=== PATIENT | female | born 1995 | race Caucasian/White ===

== ENCOUNTER 2016-11-12 13:53 | Outpatient (CLI) | payer BC | END 2016-11-12 19:25 | disposition home or self-care (01) | LOC: SUS 13:53 | PROVIDERS: ATTEND Specialist | DX: M79.662 Pain in left lower leg (principal) | CPT/HCPCS: 93971 ==

== ENCOUNTER 2016-12-10 15:20 | Day surgery (SDC) | payer BC ==
[~2016-12-10] VITALS: Ht 170.2 cm; Wt 80.3 kg
[2016-12-10 16:13] LABS: BASOPHILS # (AUTO) 0.1 K/uL (0.0-0.2); BASOPHILS % (AUTO) 0.7 % (0.0-2.0); EOSINOPHILS # (AUTO) 0.1 K/uL (0.0-0.4); EOSINOPHILS % (AUTO) 1.2 % (0.0-4.0); HEMATOCRIT 26.9 % (36-48); HEMOGLOBIN 8.1 g/dL (12.0-16.0); LYMPHOCYTES # (AUTO) 2.1 K/uL (1.0-5.5); LYMPHOCYTES % (AUTO) 20.1 % (20.5-51.5); MEAN CORPUSCULAR HEMOGLOBIN 19 pg (27-31); MEAN CORPUSCULAR HGB CONC 30 % (32-36); MEAN CORPUSCULAR VOLUME 64 fL (79.0-98.0); MONOCYTES # (AUTO) 0.9 K/uL (0.0-1.0); MONOCYTES % (AUTO) 8.6 % (1.7-9.3); NEUTROPHILS % (AUTO) 69.4 % (40.0-70.0); PLATELET COUNT (AUTO) 228 K/uL (130-430); RED BLOOD CELL COUNT(AUTO) 4.24 MIL/uL (4.2-6.2); RED CELL DISTRIBUTION WIDTH 16.2 % (9.0-15.0); WHITE BLOOD COUNT (AUTO) 10.2 K/uL (4.8-10.8)
[2016-12-10 16:48] LABS: BILIRUBIN,URINE NEGATIVE (NEGATIVE); BLOOD, URINE NEGATIVE (NEGATIVE); CLARITY/URINE CLEAR (CLEAR); COLOR,URINE YELLOW (YELLOW); GLUCOSE,URINE NEGATIVE (NEGATIVE); KETONES,URINE TRACE (NEGATIVE); LEUKOCYTE ESTERASE ,URINE NEGATIVE (NEGATIVE); NITRITE, URINE NEGATIVE (NEGATIVE); PH,URINE 6.5 (5.0-8.0); PROTEIN URINE NEGATIVE (NEGATIVE); UROBILINOGEN,URINE 0.2 (0.2-1.0)
[2016-12-10] MEDS ORDERED: MIDAZOLAM HCL 5 MG/5 ML VIAL IVP ONE (17:30)
[2016-12-10] MEDS ORDERED: ONDANSETRON HCL 4 MG/2 ML VIAL IVP ONE (17:30)
[2016-12-10] MEDS ORDERED: ePHEDrine sulfate 50 MG/ML VIAL IV ONE (17:30)
[2016-12-10] MEDS ORDERED: BUPIVACAINE /PF 0.25% 30 ML VIAL INJ ONE (17:30)
[2016-12-10] MEDS ORDERED: NS IRRIG SOLN 1000 ML IR ONE (17:30)
[2016-12-10] MEDS ORDERED: LR 1,000 ML IV SCH (18:39)
[2016-12-10] MEDS ORDERED: HYDROmorphone 1 MG INJ. 1 MG/ML AMPUL IVP PRN (18:45)
[2016-12-10] MEDS ORDERED: HYDROmorphone 2 MG/ML VIAL IVP PRN ×2 (18:45)
[2016-12-10] MEDS ORDERED: MEPERIDINE HCL/PF 25 MG/ML DISP.SYRIN IVP PRN (18:45)
[2016-12-10] MEDS ORDERED: TERBUTALINE SULFATE 1 MG/ML VIAL SUBCUT ONE (19:15)
[2016-12-10] MEDS ORDERED: MORPHINE SULFATE 10 MG/ML VIAL IM PRN (19:15)
[2016-12-10 22:32] VITALS: BP_SYST 111
[2016-12-11] MEDS: ceFAZolin SODIUM 1 GM in D5W 50 ML IV SCH ×2 (02:03→10:31)
[2016-12-11] MEDS ORDERED: ceFAZolin SODIUM 1 GM VIAL ONE (10:28)
== END 2016-12-11 18:50 | disposition home or self-care (01) ==
LOC: SDS 15:20 → SPU 15:25 → SDS 12-11 18:50
PROVIDERS: ATTEND Specialist
DX: O34.32 Maternal care for cervical incompetence, second trimester (principal); O30.002 Twin pregnancy, unspecified number of placenta and unspecified number of amniotic sacs, second trimester; Z3A.22 22 weeks gestation of pregnancy; D64.9 Anemia, unspecified; G43.909 Migraine, unspecified, not intractable, without status migrainosus; E66.9 Obesity, unspecified
CPT/HCPCS: 36415; 59320; 81003; 85025; 87070 ×2; 87086; 94010; 94760 ×2; J0690 ×2; J2250; J2270; J2405; J3490; J7060; J7120

== ENCOUNTER 2017-01-15 22:04 | Observation (INO) | payer BC ==
[~2017-01-15] VITALS: Ht 170.2 cm; Wt 82.6 kg
[2017-01-15] MEDS ORDERED: TERBUTALINE SULFATE 1 MG/ML VIAL ONE (22:26)
[2017-01-15] MEDS ORDERED: TERBUTALINE SULFATE 1 MG/ML VIAL SUBCUT PRN (22:30)
[2017-01-15 23:06] LABS: BILIRUBIN,URINE NEGATIVE (NEGATIVE); BLOOD, URINE NEGATIVE (NEGATIVE); CLARITY/URINE CLEAR (CLEAR); COLOR,URINE YELLOW (YELLOW); GLUCOSE,URINE TRACE (NEGATIVE); KETONES,URINE NEGATIVE (NEGATIVE); LEUKOCYTE ESTERASE ,URINE NEGATIVE (NEGATIVE); NITRITE, URINE NEGATIVE (NEGATIVE); PROTEIN URINE NEGATIVE (NEGATIVE); UROBILINOGEN,URINE 0.2 (0.2-1.0)
== END 2017-01-16 00:40 | disposition home or self-care (01) ==
LOC: SPU 22:04
PROVIDERS: ADMIT Specialist; ATTEND Specialist
DX: O62.9 Abnormality of forces of labor, unspecified (principal); Z3A.27 27 weeks gestation of pregnancy
CPT/HCPCS: 81003; G0378 ×2; J3105

== ENCOUNTER 2017-01-24 13:35 | Observation (INO) | payer BC ==
[~2017-01-24] VITALS: Ht 170.2 cm; Wt 84.4 kg
[2017-01-24 14:14] LABS: BILIRUBIN,URINE NEGATIVE (NEGATIVE); BLOOD, URINE NEGATIVE (NEGATIVE); CLARITY/URINE CLEAR (CLEAR); COLOR,URINE YELLOW (YELLOW); GLUCOSE,URINE NEGATIVE (NEGATIVE); KETONES,URINE NEGATIVE (NEGATIVE); NITRITE, URINE NEGATIVE (NEGATIVE); PH,URINE 5.5 (5.0-8.0); PROTEIN URINE NEGATIVE (NEGATIVE); UROBILINOGEN,URINE 0.2 (0.2-1.0)
[2017-01-24 14:18] LABS: LEUKOCYTE ESTERASE ,URINE TRACE (NEGATIVE)
[2017-01-24 14:19] LABS: BACTERIA,URINE FEW /HPF (None Seen); MUCUS,URINE None Seen /LPF (None Seen); RBC,URINE NONE SEEN /HPF (0-3)
[2017-01-24] MEDS ORDERED: TERBUTALINE SULFATE 1 MG/ML VIAL ONE (14:20)
[2017-01-24] MEDS ORDERED: TERBUTALINE SULFATE 1 MG/ML VIAL SUBCUT ONE (14:30)
== END 2017-01-24 15:55 | disposition home or self-care (01) ==
LOC: SPU 13:35
PROVIDERS: ADMIT Specialist; ATTEND Specialist
DX: O62.9 Abnormality of forces of labor, unspecified (principal); Z3A.29 29 weeks gestation of pregnancy
CPT/HCPCS: 81000; 96372; G0378; J3105

== ENCOUNTER 2020-05-03 10:53 | Emergency (ER) | payer BC, MEDICAID ==
[~2020-05-03] VITALS: Ht 170.2 cm; Wt 88.5 kg
[2020-05-03 11:09] VITALS: BP_SYST 109
[2020-05-03] MEDS ORDERED: NACL 0.9% 1,000 ML IV ONE (11:30)
[2020-05-03] MEDS ORDERED: MORPHINE 4 MG/ML INJ. SYRINGE IVP ONE (11:30)
[2020-05-03] MEDS ORDERED: ONDANSETRON HCL 4 MG/2 ML VIAL IVP ONE ×2 (11:30→14:45)
[2020-05-03 11:52] LABS: BASOPHILS # (AUTO) 0.1 K/uL (0.0-0.2); BASOPHILS % (AUTO) 0.8 % (0.0-2.0); EOSINOPHILS % (AUTO) 0.2 % (0.0-4.0); HEMATOCRIT 35.2 % (36-48); HEMOGLOBIN 10.8 g/dL (12.0-16.0); MEAN CORPUSCULAR HEMOGLOBIN 20 pg (27-31); MEAN CORPUSCULAR HGB CONC 31 % (32-36); MEAN CORPUSCULAR VOLUME 65 fL (79.0-98.0); MONOCYTES # (AUTO) 0.5 K/uL (0.0-1.0); MONOCYTES % (AUTO) 6.6 % (1.7-9.3); NEUTROPHILS # (AUTO) 5.9 K/uL (1.8-7.7); NEUTROPHILS % (AUTO) 79.4 % (40.0-70.0); PLATELET COUNT (AUTO) 268 K/uL (130-430); RED BLOOD CELL COUNT(AUTO) 5.44 MIL/uL (4.2-6.2); RED CELL DISTRIBUTION WIDTH 18.5 % (9.0-15.0); WHITE BLOOD COUNT (AUTO) 7.5 K/uL (4.8-10.8)
[2020-05-03 12:06] LABS: CALCIUM 9.5 mg/dL (8.4-11.0); CREATININE 0.84 mg/dL (0.55-1.30); POTASSIUM 3.8 mmol/L (3.5-5.1)
[2020-05-03 12:10] LABS: PROTHROMBIN TIME 10.6 SECS (9.5-12.5)
[2020-05-03 12:12] LABS: TOTAL BILIRUBIN 0.3 mg/dL (0.0-1.0)
[2020-05-03 12:30] LABS: BILIRUBIN,URINE NEGATIVE (NEGATIVE); BLOOD, URINE NEGATIVE (NEGATIVE); COLOR,URINE YELLOW (YELLOW); GLUCOSE,URINE NEGATIVE (NEGATIVE); KETONES,URINE NEGATIVE (NEGATIVE); LEUKOCYTE ESTERASE ,URINE NEGATIVE (NEGATIVE); NITRITE, URINE NEGATIVE (NEGATIVE); PROTEIN URINE TRACE (NEGATIVE); UROBILINOGEN,URINE 0.2 (0.2-1.0)
[2020-05-03 12:36] LABS: CLARITY/URINE SLIGHTLY HAZY (CLEAR)
[2020-05-03] MEDS ORDERED: KETOROLAC TROMETHAMINE 30 MG VIAL IVP ONE (14:45)
[2020-05-03] MEDS ORDERED: IBUP-1969 PO (14:49)
[2020-05-03] MEDS ORDERED: ONDA-8 TL (14:49)
[2020-05-03] MEDS ORDERED: TRAM50TA2 PO (14:49)
[2020-05-03 15:12] VITALS: BP_SYST 109
== END 2020-05-03 15:12 | disposition home or self-care (01) ==
LOC: SED 10:53
DX: N83.209 Unspecified ovarian cyst, unspecified side (principal)
CPT/HCPCS: 36415; 74176; 76376; 80053; 81003; 81025; 83690; 84703; 85025; 85610; 85730; 96361; 96374; 96375; 96376; 99285; J1885; J2270; J2405; J7030

== ENCOUNTER 2021-05-06 08:25 | Emergency (ER) | payer MEDICAID ==
[~2021-05-06] VITALS: Ht 170.2 cm; Wt 84.8 kg
[~2021-05-06 08:25] MED LIST: IBUP-1969 PO; ONDA-8 TL; TRAM50TA2 PO
--- NOTE | 2021-05-06 08:31 | NUR ---
Patient to ER bed 04 to gown for evaluation. Side rails up.
[2021-05-06 08:32] VITALS: BP_SYST 146
--- NOTE | 2021-05-06 08:35 | NUR ---
PATIENT IN NO ACUTE DISTRESS, C/C RLQ PAIN. DENIES N/V/D. AOX4.
--- NOTE | 2021-05-06 08:45 | NUR ---
UA COLLECTED, BROUGHT TO LAB.
--- NOTE | 2021-05-06 08:48 | NUR ---
MD AT BEDSIDE ASSESSING PATIENT.
[2021-05-06] MEDS ORDERED: KETOROLAC TROMETHAMINE 60 MG/2 ML VIAL IM ONE (09:00)
--- NOTE | 2021-05-06 09:05 | NUR ---
Pt to x-ray, accompanied by tech.
--- NOTE | 2021-05-06 09:14 | NUR ---
Pt back from x-ray, accompanied by tech.
[2021-05-06 09:18] LABS: BASOPHILS # (AUTO) 0.1 K/uL (0.0-0.2); BASOPHILS % (AUTO) 1.1 % (0.0-2.0); EOSINOPHILS # (AUTO) 0.2 K/uL (0.0-0.4); EOSINOPHILS % (AUTO) 2.5 % (0.0-4.0); HEMATOCRIT 35.5 % (36-48); HEMOGLOBIN 10.9 g/dL (12.0-16.0); LYMPHOCYTES # (AUTO) 1.6 K/uL (1.0-5.5); LYMPHOCYTES % (AUTO) 24.3 % (20.5-51.5); MEAN CORPUSCULAR HEMOGLOBIN 21 pg (27-31); MEAN CORPUSCULAR HGB CONC 31 % (32-36); MEAN CORPUSCULAR VOLUME 68 fL (79.0-98.0); MONOCYTES # (AUTO) 0.6 K/uL (0.0-1.0); MONOCYTES % (AUTO) 9.5 % (1.7-9.3); NEUTROPHILS % (AUTO) 62.6 % (40.0-70.0); PLATELET COUNT (AUTO) 251 K/uL (130-430); RED BLOOD CELL COUNT(AUTO) 5.23 MIL/uL (4.2-6.2); RED CELL DISTRIBUTION WIDTH 15.4 % (9.0-15.0); WHITE BLOOD COUNT (AUTO) 6.4 K/uL (4.8-10.8)
[2021-05-06 09:26] LABS: BILIRUBIN,URINE NEGATIVE (NEGATIVE); BLOOD, URINE NEGATIVE (NEGATIVE); CLARITY/URINE SL CLOUDY (CLEAR); COLOR,URINE YELLOW (YELLOW); GLUCOSE,URINE NEGATIVE (NEGATIVE); KETONES,URINE NEGATIVE (NEGATIVE); LEUKOCYTE ESTERASE ,URINE 3+ (NEGATIVE); NITRITE, URINE NEGATIVE (NEGATIVE); PROTEIN URINE NEGATIVE (NEGATIVE); UROBILINOGEN,URINE 0.2 (0.2-1.0)
[2021-05-06 09:27] LABS: CALCIUM 9.4 mg/dL (8.4-11.0); CREATININE 0.78 mg/dL (0.55-1.30); POTASSIUM 4.4 mmol/L (3.5-5.1)
[2021-05-06 09:33] LABS: ALBUMIN 3.9 g/dL (3.4-4.8); TOTAL BILIRUBIN 0.1 mg/dL (0.0-1.0)
[2021-05-06 09:42] LABS: RBC,URINE 0-3 /HPF (0-3)
[2021-05-06 09:43] LABS: BACTERIA,URINE FEW /HPF (None Seen)
--- NOTE | 2021-05-06 09:45 | NUR ---
EDUCATED PATIENT ON DX, ALL QUESTIONS ANSWERED.
[2021-05-06] MEDS ORDERED: TRAM50TA PO (10:29)
[2021-05-06] MEDS ORDERED: NITR-85 PO (10:31)
[2021-05-06 10:44] VITALS: BP_SYST 146
--- NOTE | 2021-05-06 10:45 | NUR ---
Patient given written and verbal discharge instructions and verbalizes understanding. ER MD discussed with patient the results and treatment provided. Patient in stable condition. ID arm band removed. Rx of given. Patient educated on pain management and to follow up with PMD. Opportunity for questions provided and answered. Medication side effect fact sheet provided.
== END 2021-05-06 10:44 | disposition home or self-care (01) ==
LOC: SED 08:25
DX: N83.201 Unspecified ovarian cyst, right side (principal); N83.202 Unspecified ovarian cyst, left side; Z88.0 Allergy status to penicillin; Z79.899 Other long term (current) drug therapy
CPT/HCPCS: 36415; 74176; 76376; 80053; 81000; 83690; 85025; 87086; 96372; 99284; J1885

== ENCOUNTER 2022-01-29 15:06 | Emergency (ER) | payer MEDICAID ==
[~2022-01-29] VITALS: Ht 170.2 cm; Wt 83.0 kg
[~2022-01-29 15:06] MED LIST changes: +NITR-85 PO; +TRAM50TA PO
[2022-01-29 15:16] VITALS: BP_SYST 117
--- NOTE | 2022-01-29 17:30 | NUR ---
PATIENT FOUND IN ROOM SITTING AAOX4 SPEECH CLEAR AND COHERENT, MOVE ALL EXTREMITIES, C/O CHEST PAIN SINCE HER SURGERY 2 WEEKS AGO, SENT BY SURGEON FOR FURTHER EVALUATION, AWAITING FOR EDP FOR INITIAL ASSESSMENT.
--- NOTE | 2022-01-29 17:45 | NUR ---
EDP AT BEDSIDE FOR INITIAL ASSESSMENT.
--- NOTE | 2022-01-29 17:48 | NUR ---
PATIENT AMBULATORY TO BATHROOM FOR URINE COLLECTION.
[2022-01-29] MEDS ORDERED: NACL 0.9% 1,000 ML IV ONE (18:00)
[2022-01-29] MEDS ORDERED: ASPIRIN 81 MG TAB.CHEW PO ONE (18:00)
[2022-01-29] MEDS ORDERED: iohexoL 350 mgI/mL, 100 ML INFUS..BTL IV ONE (18:01)
[2022-01-29 18:11] LABS: BASOPHILS # (AUTO) 0.1 K/uL (0.0-0.2); BASOPHILS % (AUTO) 1.1 % (0.0-2.0); EOSINOPHILS # (AUTO) 0.2 K/uL (0.0-0.4); EOSINOPHILS % (AUTO) 2.8 % (0.0-4.0); HEMATOCRIT 33.8 % (36-48); HEMOGLOBIN 10.7 g/dL (12.0-16.0); LYMPHOCYTES # (AUTO) 1.8 K/uL (1.0-5.5); LYMPHOCYTES % (AUTO) 32.8 % (20.5-51.5); MEAN CORPUSCULAR HEMOGLOBIN 22 pg (27-31); MEAN CORPUSCULAR HGB CONC 32 % (32-36); MEAN CORPUSCULAR VOLUME 71 fL (79.0-98.0); MONOCYTES # (AUTO) 0.5 K/uL (0.0-1.0); MONOCYTES % (AUTO) 9.4 % (1.7-9.3); NEUTROPHILS % (AUTO) 53.9 % (40.0-70.0); PLATELET COUNT (AUTO) 202 K/uL (130-430); RED BLOOD CELL COUNT(AUTO) 4.77 MIL/uL (4.2-6.2); WHITE BLOOD COUNT (AUTO) 5.6 K/uL (4.8-10.8)
[2022-01-29 18:30] LABS: ANION GAP 5 (5-15); CALCIUM 9.3 mg/dL (8.4-11.0); CHLORIDE 106 mmol/L (98-107); CREATININE 0.78 mg/dL (0.55-1.30); GLUCOSE 85 mg/dL (70-99); UREA NITROGEN, BLOOD 10 mg/dL (8-21)
[2022-01-29 18:41] LABS: ALANINE AMINOTRANSFERASE 14 U/L (12-78); ALBUMIN 3.8 g/dL (3.4-4.8); ASPARTATE AMINOTRANSFERASE 12 U/L (10-37); TOTAL BILIRUBIN 0.2 mg/dL (0.0-1.0)
[2022-01-29 18:43] LABS: GFR AFRICAN AMERICAN 115 mL/min (>90)
--- NOTE | 2022-01-29 18:44 | NUR ---
PATIENT TAKEN TO CT SCAN.
[2022-01-29] MEDS ORDERED: KETOROLAC TROMETHAMINE 60 MG/2 ML VIAL IM ONE (19:30)
[2022-01-29] MEDS ORDERED: MAG HYDROX/AL HYDROX/SIMETH 30 ML, DICYCLOMINE HCL 20 MG, LIDOCAINE VISCOUS 2% 15ML (PO... PO ONE ×3 (19:30)
[2022-01-29] MEDS ORDERED: KETOROLAC TROMETHAMINE 30 MG VIAL IVP ONE (20:15)
--- NOTE | 2022-01-29 20:20 | NUR ---
Patient given written and verbal discharge instructions and verbalizes understanding. ER MD discussed with patient the results and treatment provided. Patient in stable condition. ID arm band removed. IV catheter removed intact and dressing applied, no active bleeding.Patient educated on pain management and to follow up with PMD. Pain Scale 0/10. Opportunity for questions provided and answered.
== END 2022-01-29 20:20 | disposition home or self-care (01) ==
LOC: SED 15:06
DX: R07.89 Other chest pain (principal); R10.13 Epigastric pain; Z88.0 Allergy status to penicillin; Z79.899 Other long term (current) drug therapy
CPT/HCPCS: 99285; 96374; 71275; 71045; 96361; 80053; 83880; 85025; 85379; 84484; 36415; 76376; Q9967; J2001; J1885; J7030

== ENCOUNTER 2022-08-07 21:39 | Emergency (ER) | payer MEDICAID ==
[~2022-08-07] VITALS: Ht 170.2 cm; Wt 83.9 kg
--- NOTE | 2022-08-08 00:05 | NUR ---
PT TO CHAIR 2 FOR EVALUATION.
[2022-08-08] MEDS ORDERED: NAPR-690 PO (00:17)
--- NOTE | 2022-08-08 00:27 | NUR ---
Patient given written and verbal discharge instructions and verbalizes understanding. ER MD RICHARDSON discussed with patient the results and treatment provided. Patient in stable condition. ID arm band removed. IV catheter removed intact and dressing applied, no active bleeding. Rx of NAPROXEN given. Patient educated on pain management and to follow up with PMD. Pain Scale 0. Opportunity for questions provided and answered. Medication side effect fact sheet provided.
== END 2022-08-08 00:28 | disposition home or self-care (01) ==
LOC: SED 21:39
DX: S93.601A Unspecified sprain of right foot, initial encounter (principal); Z79.899 Other long term (current) drug therapy; X58.XXXA Exposure to other specified factors, initial encounter; Y93.89 Activity, other specified; Y92.89 Other specified places as the place of occurrence of the external cause; Y99.8 Other external cause status
CPT/HCPCS: 99283